=== PATIENT | female | born 1965 | race Caucasian/White ===

== ENCOUNTER 2022-07-17 01:41 | Emergency (ER) | payer BC ==
[~2022-07-17] VITALS: Ht 157.5 cm; Wt 66.5 kg
[2022-07-17 02:06] VITALS: BP 164/93
[2022-07-17] MEDS ORDERED: DIAZEPAM 5 MG TABLET PO ONE (02:30)
== END 2022-07-17 05:28 | disposition home or self-care (01) ==
LOC: ER 01:41
DX: F41.9 Anxiety disorder, unspecified (principal)
CPT/HCPCS: 99283